=== PATIENT | female | born 1995 | race Two or more races ===

== ENCOUNTER 2018-03-22 17:08 | Emergency (ER) | payer SELFPAY ==
[~2018-03-22] VITALS: Ht 170.2 cm; Wt 81.6 kg
[2018-03-22 17:22] VITALS: BP 118/62
[2018-03-22] MEDS ORDERED: IBUPROFEN 600 MG TABLET PO ONE ×2 (17:38→18:00)
== END 2018-03-22 18:07 | disposition home or self-care (01) ==
LOC: ER 17:17
DX: S50.12XA Contusion of left forearm, initial encounter (principal); M26.621 Arthralgia of right temporomandibular joint; Z60.2 Problems related to living alone; R51 Headache; V49.49XA Driver injured in collision with other motor vehicles in traffic accident, initial encounter; Y93.89 Activity, other specified; Y92.488 Other paved roadways as the place of occurrence of the external cause; Y99.8 Other external cause status
CPT/HCPCS: 84703-TC; A4606; Z7610